=== PATIENT | female | born 2000 | race African-American/Black ===

== ENCOUNTER 2022-04-16 23:27 | Emergency (ER) | payer SELFPAY ==
[~2022-04-16] VITALS: Ht 157.5 cm; Wt 56.4 kg
[2022-04-16 23:31] VITALS: TEMP 98.7
[2022-04-17 00:54] VITALS: BP 126/84; PULSE 81
== END 2022-04-17 00:55 | disposition home or self-care (01) ==
LOC: COL.ER 23:27
DX: M54.50 Low back pain, unspecified (principal); M25.572 Pain in left ankle and joints of left foot; V49.50XA Passenger injured in collision with unspecified motor vehicles in traffic accident, initial encounter; Y92.410 Unspecified street and highway as the place of occurrence of the external cause